=== PATIENT | female | born 1995 | race Caucasian/White ===

== ENCOUNTER → 2021-03-11 00:19 | Outpatient (CLI) | payer OTHER, SELFPAY ==
[2021-03-11 18:14] LABS: SARS-CoV-2 RNA PCR Negative
== END ==
PROVIDERS: Visit Provider Obstetrics & Gynecology
DX: Z01.812 Encounter for preprocedural laboratory examination (principal); Z20.822 Contact with and (suspected) exposure to COVID-19
CPT/HCPCS: C9803; U0003; U0005

== ENCOUNTER 2021-03-15 00:51 | Day surgery (SDC) | payer OTHER, SELFPAY ==
[2021-03-08 14:08] VITALS: BMI 23.8
--- NOTE | 2021-03-08 14:18 | PC.NURSE ---
Report to the Outpatient Waiting Room, entrance under the green pavilion located off [facility], at time 1230 on date 03/15/21. OR Time: 1430. - You and your visitor will be asked a series of questions to screen for COVID 19 for your protection. - A mask is required within the hospital. - Only one visitor is allowed at this time. Patient visitors will be guided where to wait when not with patient. Preoperative COVID Testing Requirements: No COVID Test needed if: (proof is required; if not received patient will have Rapid Test prior to entry) - Patient has received COVID Vaccine at least 14 days prior to procedure date or - Patient has positive COVID test result within last 90 days of surgery date. COVID Test needed if above criteria is not met If not COVID vaccinated a COVID test must be conducted within 72 hours of surgery and patient is asked to isolate self from time of testing until procedure. You will go to the [email or web address] for your COVID testing. The [email or web address] site is located at the corner of [address] [facility]. COVID TEST 03/11 AT 0835 You will only be called if COVID results are positive and your surgeon may reschedule your elective surgery date. Patients may have clear liquids (water, carbonated beverages, clear teas, apple juice) until 3 hours prior to surgery with a maximum of 20 ounces. - No food from midnight until time of surgery - Infants may have breast milk until 4 hours before surgery, infant formula 6 hours prior to surgery. - Children will be allowed to drink immediately following surgery. If applicable, please bring a bottle or sippy cup to assist with drinking. Juice, water, soda, and popsicles are readily available. For infants on formula, please bring formula the day of surgery. Pacifiers are allowed. Take the following medications with a SIP of water the morning of surgery: N/A Medications to discontinue per physician: N/A Date to take last dose: N/A Please no make-up, nail irish, hairspray, perfume, deodorant, or body powder the day of surgery. No jewelry (including any body piercings) or valuables the day of surgery, leave them at home. Please take a shower or bath the night before, or the morning of, surgery with an antibacterial soap. Wear comfortable, loose fitting clothing. Children are encouraged to wear pajamas. - Jewelry must be removed prior to entering the operating room. Rings and piercings that are not removed may be cut off. - The hospital will not accept responsibility for valuables. - Please leave all valuables, including medications, at home the day of surgery. If you are going home after surgery, a licensed class c truck driver must drive you home. - NO public transportation without another adult. - We recommend that an adult stay with you for 24 hours following discharge. - We also recommend that you do not drive, make important decision, drink alcoholic beverages, or take any drugs that were not prescribed by your health care provider for at least 24 hours after your discharge time. For Pediatric surgeries, we recommend two adults accompany the child home (only one inside the building at this time). Follow any additional instructions given to you from your surgeon. Telephone instructions given to ODIN LYNCH and asked if any additional questions and then verbalized understanding. Patient advised to call surgeon office or pre surgery nurse liaison [phone] if any additional questions.
[2021-03-15] MEDS: ACETAMINOPHEN 500 MG TABLET 1000 MG PO (11:09)
[2021-03-15] MEDS: LACTATED RINGERS 1,000 ML 30 ML IV CONT (11:10)
[2021-03-15 11:13] VITALS: BP 104/67; PULSE 67; RESP 20; TEMP 37; O2SAT 100
--- NOTE | 2021-03-15 12:09 | P.PNAN_ITS ---
Anes - Initial Pre Proc Eval Procedure: Operation Date: 03/15/21 12:45 Proposed Procedures p Loop Electrical Excision Procedure - Jayesh Cormier MD Date/Time: 03/15/21 12:09 Surgeon: Jayesh Cormier MD Pre Op Diagnosis: higrade squamous epith lesion Patient Data Age: 26 Gender: F Height: 1.57 m Weight: 58.35 kg Last Vital Signs Temp 37.0 C 03/15/21 11:13 Pulse 67 03/15/21 11:13 Resp 20 03/15/21 11:13 BP 104/67 03/15/21 11:13 Pulse Ox 100 03/15/21 11:13 Allergies Allergy/AdvReac Type Severity Reaction Status Date / Time No Known Allergies Allergy Verified 03/15/21 11:04 Home Medications Medication Instructions Recorded Confirmed Type No Home Medications 03/08/21 03/15/21 History Patient hx anesthesia problems: none Family hx anesthesia problems: none Results Review: All pre-operative results and documents have been reviewed as part of the pre-operative evaluation. [facility] Past Medical History Medical History Anxiety Depression Surgical History Surgical History No history of previous surgery Family History Family History Grandparent Diabetes mellitus Sibling Diabetes mellitus Depression Mother Bipolar disorder Chronic obstructive pulmonary disease Father Heart disease Social History Social History Smoking packs per day: 0.5 Smoking cigarettes per day: 10.0 Years smoked: 8 Smoking pack-years: 4.00 Smoking status: Former smoker Tobacco type: cigarettes Second hand tobacco smoke exposure: No Smoking end date: 04/22/17 Alcohol intake: current Alcohol use details: 2/MONTH Substance use: current Substance use type: marijuana Last use: 03/04/21 Living arrangements: with family Gender identity (if verbalized by the patient): Female Spiritual care concerns: No Agree to blood products: Yes Anes - Eval Final PreProcedure Day of Procedure 03/15/21 12:09 Patient weight: normal Heart: regular rate and rhythm Lungs: clear to auscultation Airway: Mallampati scale class II Neurological: alert and oriented Last oral intake: >/= 8 hours ASA classification: II Emergent: no Anesthetic plan: proceed Anesthesia type and monitoring: general GIVS and standard monitoring Results Review: All pre-operative results and documents have been reviewed as part of the pre-operative evaluation. Informed Consent: The patient's anesthetic plan and its attendant risks and benefits were discussed with the patient/family/POA. Questions were solicited and answers provided to the satisfaction of the patient/family/POA.
--- NOTE | 2021-03-15 12:37 | PM.IMHP ---
H&P: HPI History of Present Illness Date/Time: 03/15/21 12:37 26 y/o with HSIL on pap, not consistent with negative colposcopically directed biopises / ECC. Chief Complaint: Abnormal pap Review of Systems Review of Systems: All systems reviewed & are unremarkable except as noted in HPI and below PMFSH Past Medical History Medical History Anxiety Depression Surgical History Surgical History No history of previous surgery Family History Family History Grandparent Diabetes mellitus Sibling Diabetes mellitus Depression Mother Bipolar disorder Chronic obstructive pulmonary disease Father Heart disease Social History Social History Smoking packs per day: 0.5 Smoking cigarettes per day: 10.0 Years smoked: 8 Smoking pack-years: 4.00 Smoking status: Former smoker Tobacco type: cigarettes Second hand tobacco smoke exposure: No Smoking end date: 04/22/17 Alcohol intake: current Alcohol use details: 2/MONTH Substance use: current Substance use type: marijuana Last use: 03/04/21 Living arrangements: with family Gender identity (if verbalized by the patient): Female Spiritual care concerns: No Agree to blood products: Yes Meds Home Medications and Allergies Home Medications Medication Instructions Recorded Confirmed Type No Home Medications 03/08/21 03/15/21 History Allergies Allergy/AdvReac Type Severity Reaction Status Date / Time No Known Allergies Allergy Verified 03/15/21 11:04 Vital Signs Vital Signs - 24 hr 03/15/21 11:13 Temperature 37.0 C Pulse Rate 67 Respiratory Rate 20 Blood Pressure 104/67 Pulse Oximetry 100 Exam Const: Orientation/consciousness: patient oriented x3 Other: Well-developed, well-nourished female in no acute distress. Neck: Thyroid: thyroid normal Lymphatic: no lymphadenopathy noted (in neck, axilla or inguinal nodes) Resp: Effort & Inspection: normal respiratory effort Auscultation: clear to auscultation bilaterally Cardio: Rate: regular rate Rhythm: regular rhythm Heart sounds: S1 normal heart sound present and S2 normal heart sound present GI: Other: ABD: Soft, nontender, nondistended. No guarding or rebound tenderness. No hepatosplenomegaly. : General: Yes no CVA tenderness Other: External genitalia: normal female hair distribution, without lesion. Urethral meatus: no lesion, non prolapsed. Bladder: no mass, nontender Vagina: well-estrogenized, without lesion or discharge. No cystocele or rectocele. Cervix: no lesion or discharge. Uterus: small, anteverted, freely mobile, nontender Adnexa: no mass or tenderness. Anus/perineum: no lesions, nontender Back/Spine/Pelvis: Back: no CVA tenderness Skin: General skin exam: normal color and no rashes or lesions noted Neuro: General: patient oriented x3 Extrem: Other: Extremities: nontender with no edema Psych: Mental Status: mental status grossly normal Affect: normal affect Assessment and Plan Assessment and plan (1) HSIL (high grade squamous intraepithelial lesion) on Pap smear of cervix: Code(s): R87.613 - High grade squamous intraepithelial lesion on cytologic smear of cervix (HGSIL) Status: Acute Assessment and Plan: A: HSIL on Pap, incongruous with biopsy P: Offered short interval colposcopy vs. excisional procedure. She prefers the latter. Specifically, I have offered her a LEEP. She understands risks of surgery to include risks of anesthesia, risks of pain, infection, bleeding, blood products, thromboembolic phenomena and damage to adjacent structures such as bowel, bladder, ureters, blood vessels and nerves. She understands all these risks and elects to proceed with surgery.
--- NOTE | 2021-03-15 12:39 | WPDHPUPDATE1 ---
History and Physical Update Update Date/Time: 03/15/21 12:39 History and Physical has been reviewed, including an updated exam of the patient. There are NO changes in the patient's condition. Risks, benefits, and alternatives have been discussed and questions answered. Patient agrees to proceed with procedure.
--- NOTE | 2021-03-15 13:05 | SUR.PREOP ---
1255-PT AND FIANCEE AWARE SURGEON DELAYS SELF 45 MINUTES.
--- NOTE | 2021-03-15 14:06 | W.PM.PROC2 ---
Procedure Note - Detailed Date of Procedure 03/15/21 Pre-op Diagnosis HSIL on Pap Post-op Diagnosis same Procedure Performed LEEP conization of cervix Surgeon Jayesh Cormier MD Anesthesia MAC and local (1% lidocaine) Findings Acetowhite epithelium on the posterior lip of the cervix, comprising only one quadrant. Description of Procedure The patient was taken to the operating room where she was prepared and draped in the usual sterile fashion in the dorsal lithotomy position. A sterile speculum was placed into the vagina. Acetic acid was applied to the cervix, with findings noted above. Ten mL of 1% lidocaine was administered in a paracervical block. LEEP conization was then performed, first biopsying the posterior lip of the cervix, then the anterior, then the top of the hat. The roller ball was used to achieve hemostasis. Monsel's solution was applied. Hemostasis was excellent. Sponge, lap, needle and instrument counts were correct. The patient was awakened and taken to the recovery room in stable condition. I was present and scrubbed through the entire procedure. Estimated Blood Loss 5 Drains No Packing No Pathology yes (Cervical biopsies x 3) Complications None Condition stable Disposition PACU
[2021-03-15 14:10] VITALS: BP 115/75; PULSE 73; RESP 18; O2SAT 99
[2021-03-15 14:25] VITALS: BP 109/70; PULSE 71; RESP 18; O2SAT 97
--- NOTE | 2021-03-15 14:35 | SUR.PHASEII ---
PT WAS TEARFUL AND ANXIOUS. PT ASSISTED TO THE RECLINER AND GIVEN JUICE. PT SAID SHE GETS LIKE THAT AFTER PROCEDURES. PT VISITOR CAME TO BEDSIDE. PT HAS SINCE CALMED DOWN. VSS. PT GIVEN TISSUES.
[2021-03-15 14:40] VITALS: BP 110/69; PULSE 62; RESP 16; O2SAT 100
== END 2021-03-15 15:02 | disposition home or self-care (01) ==
PROVIDERS: Visit Provider Obstetrics & Gynecology
PROC: 0UBC7ZZ Excision of Cervix, Via Natural or Artificial Opening (ICD-10-PCS; CPT 57522; principal; 2021-03-15 12:45)
DX: D06.9 Carcinoma in situ of cervix, unspecified (principal); N72 Inflammatory disease of cervix uteri; F41.8 Other specified anxiety disorders; Z87.891 Personal history of nicotine dependence; F12.90 Cannabis use, unspecified, uncomplicated
CPT/HCPCS: 57522; 88305; A9270; C9803; J1885; J2250; J2270; J2405; J2704; J7120; U0003; U0005

== ENCOUNTER → 2021-05-16 16:43 | Outpatient (CLI) | payer OTHER, MEDICAID, SELFPAY ==
--- NOTE | ~2021-05-16 | XR_ITS ---
XR cervical spine min 6V DATE: 05/16/2021 17:21 INDICATION: Neck pain TECHNIQUE: AP, open-mouth, lateral, swimmer's and bilateral oblique views COMPARISON: None FINDINGS: There is mild reversal of cervical curvature. C1 and C2 are normally aligned and the odontoid process is intact. No fracture or dislocation or locked facet or prevertebral soft tissue swelling. Cervical interspaces are well preserved. There is no bony encroachment upon the neural foramina. IMPRESSION: Mild reversal cervical curvature; otherwise negative Reviewed, dictated and finalized at location A. [employer]
== END ==
PROVIDERS: PCP Nurse Practitioner; Visit Provider Nurse Practitioner
DX: M54.2 Cervicalgia (principal); M43.8X2 Other specified deforming dorsopathies, cervical region
CPT/HCPCS: 72052

== ENCOUNTER 2022-04-04 10:31 | Outpatient (RCR) | payer OTHER, SELFPAY ==
--- NOTE | ~2022-04-04 | US_ITS ---
EXAMINATION: US OB limited DATE: 04/04/2022 11:44 INDICATION: Amniotic fluid index. Term . TECHNIQUE: Real-time ultrasound of the pelvis was performed. COMPARISON: None. FINDINGS: There is a single fetus in vertex presentation. The placenta is anterior. heart rate is 141 be ats per minute (bpm). The amniotic fluid index is 8.0 cm, which is normal. IMPRESSION: 1. Single living fetus in vertex presentation. 2. Normal amniotic fluid index. Reviewed, dictated and finalized at location A. LOADER
[2022-04-04 11:57] VITALS: BP 103/76; PULSE 104
== END 2022-07-03 23:59 | disposition home or self-care (01) ==
LOC: ANHOBOP 10:31
PROVIDERS: PCP Family Medicine; Visit Provider Obstetrics & Gynecology
DX: O26.893 Other specified pregnancy related conditions, third trimester (principal); Z3A.39 39 weeks gestation of pregnancy
CPT/HCPCS: 59025; 76815

== ENCOUNTER 2023-06-16 15:32 | Emergency (ER) | payer OTHER, SELFPAY ==
[2023-06-16 16:02] VITALS: BP 135/72; PULSE 91; RESP 18; TEMP 36.4; O2SAT 100
== END 2023-06-16 17:34 | disposition left against medical advice (07) ==
LOC: ANHED 17:24
PROVIDERS: Emergency Provider Emergency Medicine; PCP Family Medicine
DX: M54.50 Low back pain, unspecified (principal)
CPT/HCPCS: 99199

== ENCOUNTER 2024-02-13 12:11 | Observation (INO) | payer OTHER, SELFPAY ==
--- NOTE | 2024-02-13 | ECHO_ITS ---
Patient Info Name: Joann Conti Age: 28 years : 1995 Gender: Female Ht: 63 in Wt: 132 lbs BSA: 1.64 m2 HR: 85 bpm BP: 130 / 84 mmHg Heart Rhythm: Sinus Rhythm Technical Quality: Fair Exam Date: 02/13/2024 4:38 PM Exam Location: Echo Lab Patient Status: Inpatient Admit Date: 02/13/2024 Staff Ordering Physician: Magi Oro APRN [employer] Vegetable: Parvez Tellez RDCS Attending Provider: Samir Ayers MD Referring Physician: Shorty LOPEZ; Exam Type: CA echo doppler w bubble study Study Info Indications - ?MURRAY Complete two-dimensional, color flow and Doppler transthoracic echocardiogram is performed with agitated saline. Contrast/Agitated Saline Contrast/Ag. Saline: Agitated Saline Amount: 14.00 ml Existing IV Access: Yes IV Access Condition: patent with no signs of infiltration Summary 1. Left ventricular chamber dimension is normal. 2. Left ventricular systolic function is normal, estimated at 65-70%. 3. Right ventricular systolic function is normal. 4. No valvular disease. Left Ventricle Left ventricular chamber dimension is normal. Left ventricular systolic function is normal, estimated at 65-70%. There is no increased left ventricular wall thickness. The left ventricular diastolic function is normal. Right Ventricle Right ventricular chamber dimension is normal. Right ventricular systolic function is normal. Left Atria Left atrial chamber dimension is normal. Right Atria Right atrial chamber dimension is normal. Atrial Septum Intact interatrial septum visualized by color flow and agitated saline imaging. Aortic Valve The aortic valve is trileaflet. There is no aortic valve stenosis. There is no aortic valve regurgitation. Pulmonic Valve The pulmonic valve is normal. There is no pulmonic regurgitation. Mitral Valve There is no mitral valve regurgitation. Tricuspid Valve There is trace tricuspid valve regurgitation. Pericardium/Pleural There is no pericardial effusion. Inferior Vena Cava Inferior vena cava is not well visualized. Aorta The aortic root size at the sinus of Valsalva is normal. Left Ventricular Outflow Tract Name Value Normal LVOT 2D LVOT Diameter 1.9 cm LVOT Doppler LVOT Peak Gradient 5 mmHg LVOT Mean Gradient 3 mmHg LVOT VTI 20 cm LVOT VTI/AV VTI Ratio 0.7 LVOT Stroke Volume 58 ml LVOT CO 5.1 l/min LVOT CI 3.1 l/min/m2 Pulmonic Valve Name Value Normal PV Doppler PV Peak Gradient 7 mmHg Mitral Valve Name Value Normal MV Doppler MV Decel Jones 525 cm/s2 MV PHT 56 ms MV Area (PHT) 3.9 cm2 4.0-5.0 MV Diastolic Function MV E Peak Velocity 102 cm/s MV A Peak Velocity 61 cm/s MV E/A 1.7 MV Decel Time 194 ms Tricuspid Valve Name Value Normal TV Regurgitation Doppler TR Peak Velocity 231 cm/s TR Peak Gradient 21 mmHg Aorta Name Value Normal Ascending Aorta Ao Root Diameter (MM) 2.0 cm Ao Root Diam Index (MM) 1.2 cm/m2 Aortic Valve Name Value Normal AV Doppler AV Peak Velocity 167 cm/s AV Peak Gradient 11 mmHg AV Mean Gradient 5 mmHg AV VTI 28 cm AV Area (Cont Eq VTI) 2.1 cm2 >=3.0 AV Area (Cont Eq Bryan) 2.0 cm2 AV Regurgitation 2D LVOT Area 2.8 cm2 Ventricles Name Value Normal LV Dimensions 2D/MM IVS Diastolic Thickness (2D) 0.5 cm 0.6-1.0 IVS Diastole Thickness (MM) 0.9 cm 0.6-0.9 LVID Diastole (2D) 4.7 cm 3.8-5.2 LVID Diastole (MM) 4.3 cm 3.8-5.2 LVIW Diastolic Thickness (2D) 0.5 cm 0.6-0.9 LVIW Diastolic Thickness (MM) 0.9 cm 0.6-0.9 LVID Systole (2D) 2.3 cm 2.2-3.5 LVID Systole (MM) 2.8 cm 2.2-3.5 LVOT Diameter 1.9 cm LV Mass (2D Cubed) 68.73 g 67.00-162.00 LV Mass Index (2D Cubed) 42 g/m2 43-95 Relative Wall Thickness (2D) 0.21 LV Mass (MM Cubed) 124.07 g 67.00-162.00 LV Mass Index (MM Cubed) 76 g/m2 43-95 Relative Wall Thickness (MM) 0.42 LV Fractional Shortening/Ejection Fraction 2D/MM LV Fractional Shortening (2D) 52 % 27-45 LV Fractional Shortening (MM) 35 % 27-45 LV EF (MM Teicholz) 64 % 54-74 LV EF (2D Teicholz) 83 % 54-74 LV Diastolic Volume (4C MOD) 62 ml LV EF (4C MOD) 73 % LV Diastolic Volume (2C MOD) 53 ml LV EF (2C MOD) 65 % LV Diastolic Volume (BP MOD) 59 ml 46-106 LV Diastolic Volume Index (BP MOD) 36 ml/m2 29-61 LV Systolic Volume (BP MOD) 18 ml 14-42 LV Systolic Volume Index (BP MOD) 11 ml/m2 8-24 LV EF (BP MOD) 69 % 54-74 LV Diastolic Length (4C) 7.6 cm LV Systolic Length (4C) 6.1 cm LV Stroke Volume (4C MOD) 45 ml Atria Name Value Normal LA Dimensions LA Dimension (MM) 2.9 cm 2.7-3.8 LA Volume (4C A-L) 25 ml LA Volume (BP A-L) 29 ml RA Dimensions RA Area (4C) 10.5 cm2 <=18.0 Report Signatures
--- NOTE | ~2024-02-13 | CT_ITS ---
CT brain wo con Ordering provider: Edwin Hatch MD History: 28 years Female with . headache left upper extremity numbness . Comparison: None. Technique: CT of the head without contrast. Radiation reduction technique utilized.The dose-length product was 605.33 mGy-cm. FINDINGS: BRAIN PARENCHYMA AND CSF SPACES: No midline shift, mass effect or hemorrhage. The brain parenchyma a nd CSF spaces are otherwise normal. VISUALIZED PARANASAL SINUSES: Well aerated. MASTOIDS: Well aerated. BONES: The bones appear intact. SOFT TISSUES: Visualized nasopharynx is normal. Superficial soft tissues are normal. IMPRESSION: No acute intracranial findings. Reviewed, dictated and finalized at location A.
--- NOTE | ~2024-02-13 | XR_ITS ---
EXAMINATION: XR chest 1V DATE: 02/13/2024 12:59 INDICATION: Headache and numbness. TECHNIQUE: A single frontal view of the chest was obtained. COMPARISON: Chest 2 views 03/16/2009 FINDINGS: There is no pneumonia, pleural effusion, or pneumothorax. The heart is normal. IMPRESSION: 1. No acute cardiopulmonary disease. Reviewed, dictated and finalized at location A.
--- NOTE | ~2024-02-13 | MR_ITS ---
EXAMINATION: MR brain/brain stem wo con DATE: 02/14/2024 09:19 INDICATION: Transient ischemic attack. TECHNIQUE: Magnetic resonance imaging (MRI) of the brain and brainstem was performed without intraven ous contrast. COMPARISON: Head CT 02/13/2024 FINDINGS: There is no intracranial hemorrhage, acute infarction, or abnormal intracranial mass lesion . The ventricles are normal in size. The paranasal sinuses are clear. The orbits are normal. The mast oid air cells are normal. IMPRESSION: 1. Normal brain. Reviewed, dictated and finalized at location A. IMPRESSION: 1. Normal brain.
--- NOTE | ~2024-02-13 | CT_ITS ---
EXAMINATION: CTA brain carotid DATE: 02/13/2024 13:58 INDICATION: Transient ischemic attack. TECHNIQUE: Computed tomographic angiography (CTA) of the head was performed with 100 mL Omnipaque-350 intravenous contrast. CTA of the neck was performed with intravenous contrast. Automated exposure co ntrol and iterative reconstruction technique were employed. The dose-length product was 969.03 mGy-cm . Maximum intensity projection and volume rendered 3D-reconstructions were created by the [employer] t on a separate workstation. COMPARISON: Head CT 02/13/2024 FINDINGS: HEAD CTA: There is no intracranial hemorrhage, acute infarction, or abnormal intracranial mass lesion . The ventricles are normal in size. There is mild mucosal thickening in the paranasal sinuses. The m astoid air cells are normal. The orbits are normal. The vertebral arteries are codominant. There is n o significant stenosis of basilar artery or the posterior cerebral arteries. The posterior communicat or arteries are normal. There is no significant stenosis of the intracranial internal carotid arterie s or anterior or middle cerebral arteries. Anterior communicating artery is normal. There is no aneur ysm. NECK CTA: There are no pathologically enlarged lymph nodes. There is no significant stenosis of the v ertebral arteries. There is no visible plaque in the proximal internal carotid arteries. There is 0% stenosis of the proximal right internal carotid artery relative to normal distal artery lumen diamete r (NASCET criteria). There is 0% stenosis of the proximal left internal carotid artery relative to no rmal distal artery lumen diameter. There is kyphosis of cervical spine. IMPRESSION: 1. Normal brain. No aneurysm or significant intracranial arterial stenosis. 2. 0% stenosis of the proximal internal carotid arteries relative to normal distal artery lumen diame ters (NASCET criteria). Reviewed, dictated and finalized at location A. IMPRESSION: 1. Normal brain. No aneurysm or significant intracranial arterial stenosis. 2. 0% stenosis of the proximal internal carotid arteries relative to normal dis russ artery lumen diameters (NASCET criteria).
--- NOTE | 2024-02-13 12:16 | ED.GENADULT ---
HPI - General Adult General Chief complaint: Unspecified Stated complaint: AMES, unable to talk, pain in R arm Time Seen by Provider: 02/13/24 12:13 Source: patient and family Mode of arrival: ambulatory Limitations: no limitations History of Present Illness HPI narrative: 28 years old white female came by private car with her complaining of sudden onset of slurred speech, was not able to get words out while talking on the phone, right upper extremity numbness, right face numbness, lips numbness and subsequently started getting anxious and panicky, followed by massive generalize dull aching headache. Patient felt like she is going to pass out. The above symptoms resolved after 10 minutes but still having headache. Patient is telling me that she had similar headaches 2 to 3 times a year for the last few years and usually gets better on ibuprofen never been associated with the above symptoms. Patient reports tremendous amount of stress lately, she does not take medicine at home she does not smoke or drink or use drugs. Related Data Home Medications Medication Instructions Recorded Confirmed Adult One Daily Multivitamin 1 tablet PO DAILY 02/13/24 02/13/24 Allergies Allergy/AdvReac Type Severity Reaction Status Date / Time succinylcholine Allergy Severe Anaphylaxis Verified 02/13/24 18:10 [From Anectine] Review of Systems Review of Systems: All systems reviewed & are unremarkable except as noted in HPI and below PMFSH Past Medical History Medical History Anxiety Depression History of chlamydia Migraine equivalent syndrome Migraine syndrome Surgical History Surgical History History of loop electrical excision procedure (LEEP) 02/2021, [place] History of tonsillectomy Tonsils/Adnoids Family History Family History Grandparent Diabetes mellitus Heart disease Sibling Diabetes mellitus Depression Mother Bipolar disorder Family history of lung cancer Chronic obstructive pulmonary disease Father No problems noted. Daughter Seizure disorder Social History Social History Social History: Lives at home alone with her 2 children, she is not , works as a social work job titles. Smoking packs per day: 0.5 Smoking cigarettes per day: 10.0 Years smoked: 8 Smoking pack-years: 4.00 Smoking status: Former smoker Second hand tobacco smoke exposure: No Alcohol intake: current Drinks per week: 1 Alcohol use details: 2/MONTH Substance use: former Substance use type: does not use Last use: 03/04/21 Do You Feel Safe in your Home?: Yes Lack of Transportation: No Lack of Food: Never True Current Housing: I Have Housing Concerned About Future Housing: No Difficulty Paying Gas/Electric Bills: No Difficulty Paying for Meds: No Currently Unemployed: No Education: Bachelor's Degree Difficulty w/ Childcare or Family Care: No Living arrangements: with family Occupation/Education: student Gender identity (if verbalized by the patient): Female Spiritual care concerns: No Agree to blood products: Yes Exam Narrative: General appearance: Well-developed, well-nourished Restless, looks in pain Skin: Normal color Head: Normocephalic, nontraumatic Eyes: Clear conjunctiva ENT: Oropharynx normal, ears normal, nose normal Neck: Supple, nontender Chest and respiratory: Airway patent, no respiratory distress, no accessory muscle use Heart: Regular rate/rhythm Abdomen: Soft, nontender, no organomegaly, quiet bowel sounds Vascular: Normal peripheral pulses, normal capillary refill. Musculoskeletal: Normal range of motion, nontender back Neurologic: Alert and oriented ?3, [employer] is normal as tested, no gross motor deficit Course Consultations Consultation #1: dr reis Admit to hospitalist Date: 02/13/24 Vital Signs Vital signs: Vital Signs Temperature 36.4 C 02/13/24 12:17 Pulse Rate 106 H 02/13/24 12:17 Respiratory Rate 16 02/13/24 12:17 Blood Pressure 130/84 02/13/24 12:17 Pulse Oximetry 100 02/13/24 12:17 Oxygen Delivery Room Air 02/13/24 12:17 Temperature 37.2 C 02/13/24 20:13 Pulse Rate 101 H 02/13/24 20:13 Respiratory Rate 16 02/13/24 20:13 Blood Pressure 100/44 L 02/13/24 20:13 Pulse Oximetry 98 02/13/24 20:13 Oxygen Delivery Room Air 02/13/24 20:00 Medical Decision Making MDM Narrative Medical decision making narrative: patient came to the ED by private car with sudden onset of slurred speech, numbness of the right upper extremity on the right side of the face resolved in 10 minutes subsequently started having generalized dull aching headache mainly at the top of her head bilaterally. Patient under tremendous amount of stress. Vital signs showing heart rate of 106 Physical examination showing restless, anxious, in pain patient with tears. Differential diagnosis include anxiety like symptoms, complex migraine headache, TIA which is less likely. Blood workup today showed potassium 3.3 otherwise insignificant abnormalities Urinalysis and urine drug screen showed no acute abnormalities Chest x-ray showed no acute abnormalities CT head without contrast showed no acute abnormality CTA head and neck showed no acute abnormalities. Admit to hospitalist, discussed with Dr. reis. Differential Diagnosis Differential Diagnosis: As above Vital Signs Vital Signs: Vital Signs Temperature 36.4 C 02/13/24 12:17 Pulse Rate 106 H 02/13/24 12:17 Respiratory Rate 16 02/13/24 12:17 Blood Pressure 130/84 02/13/24 12:17 Pulse Oximetry 100 02/13/24 12:17 Oxygen Delivery Room Air 02/13/24 12:17 Temperature 37.2 C 02/13/24 20:13 Pulse Rate 101 H 02/13/24 20:13 Respiratory Rate 16 02/13/24 20:13 Blood Pressure 100/44 L 02/13/24 20:13 Pulse Oximetry 98 02/13/24 20:13 Oxygen Delivery Room Air 02/13/24 20:00 Lab Data 02/13/24 13:18 02/13/24 13:19 Labs: Lab Results 02/13/24 02/13/24 02/13/24 Range/Units 12:41 12:42 13:05 WBC (4.5-10.0) K/mm3 RBC (4.2-5.4) M/mm3 Hgb (12.0-15.0) g/dL Hct (37.0-47.0) % MCV (80-100) fl MCH (26-34) pg MCHC (32-36) g/dl RDW (11.5-14.5) % Plt Count (150-375) k/mm3 MPV (7.4-10.4) fl Immature Gran % (Auto) (0-0.5) % Neut % (Auto) (45.5-73.1) % Lymph % (Auto) (18.3-44.2) % [place] % (Auto) (2.6-8.5) % Eos % (Auto) (0-4.4) % Baso % (Auto) (0.2-1.2) % Lymph # (Auto) (0.9-3.2) K/mm3 [place] # (Auto) (0.1-0.6) K/mm3 Eos # (Auto) (0-0.3) K/mm3 Baso # (Auto) (0.0-0.1) K/mm3 Abs Immat Gran (auto) (0.00-0.031) K/mm3 Absolute Neuts (auto) (1.3-6.7) K/mm3 Absolute Nucleated RBC (0.0-0.012) K/mm3 Nucleated RBC % (0.0-0.2) % PT (11.1-14.7) Seconds INR APTT (22.3-36.8) Seconds Sodium (137-145) mmol/L Potassium (3.4-5.0) mmol/L Chloride (98-107) mmol/L Carbon Dioxide (22-30) mmol/L Anion Gap (4-12) mmol/L BUN (7-17) mg/dL Creatinine (0.7-1.0) mg/dL Estim Creat Clear Calc ml/min Estimated GFR (59 - ) Glucose (65-110) mg/dL POC Capillary Glucose 98 (65-105) mg/dl Calcium (8.4-10.2) mg/dL Magnesium (1.6-2.3) mg/dL Total Bilirubin (0.2-1.3) mg/dL AST (14-36) U/L ALT (6-35) U/L Alkaline Phosphatase (38-126) U/L Total Protein (6.3-8.2) g/dL Albumin (3.5-5.1) g/dL TSH (0.465-4.680) uIU/mL POC Urine HCG, Qual Negative (Negative) Urine Opiates Screen Negative (Negative) Urine Methadone Screen Negative (Negative) Ur Barbiturates Screen Negative (Negative) Ur Phencyclidine Scrn Negative (Negative) Ur Amphetamine Screen Negative (Negative) U Benzodiazepines Scrn Negative (Negative) Urine Cocaine Screen Negative (Negative) U Cannabinoids Screen Negative (Negative) 02/13/24 02/13/24 02/13/24 Range/Units 13:18 13:19 13:24 WBC 9.5 (4.5-10.0) K/mm3 RBC 5.28 (4.2-5.4) M/mm3 Hgb 15.0 D (12.0-15.0) g/dL Hct 44.6 (37.0-47.0) % MCV 84.5 (80-100) fl MCH 28.4 (26-34) pg MCHC 33.6 (32-36) g/dl RDW 12.9 (11.5-14.5) % Plt Count 225 (150-375) k/mm3 MPV 9.2 (7.4-10.4) fl Immature Gran % (Auto) 0.3 (0-0.5) % Neut % (Auto) 76.3 H (45.5-73.1) % Lymph % (Auto) 16.9 L (18.3-44.2) % [place] % (Auto) 5.4 (2.6-8.5) % Eos % (Auto) 0.5 (0-4.4) % Baso % (Auto) 0.6 (0.2-1.2) % Lymph # (Auto) 1.61 (0.9-3.2) K/mm3 [place] # (Auto) 0.5 (0.1-0.6) K/mm3 Eos # (Auto) 0.1 (0-0.3) K/mm3 Baso # (Auto) 0.1 (0.0-0.1) K/mm3 Abs Immat Gran (auto) 0.03 (0.00-0.031) K/mm3 Absolute Neuts (auto) 7.2 H (1.3-6.7) K/mm3 Absolute Nucleated RBC 0.000 (0.0-0.012) K/mm3 Nucleated RBC % 0.0 (0.0-0.2) % PT 13.1 (11.1-14.7) Seconds INR 0.9 APTT 27.9 (22.3-36.8) Seconds Sodium 139 (137-145) mmol/L Potassium 3.3 L (3.4-5.0) mmol/L Chloride 106 (98-107) mmol/L Carbon Dioxide 21 L (22-30) mmol/L Anion Gap 12 (4-12) mmol/L BUN 9 (7-17) mg/dL Creatinine 0.50 L (0.7-1.0) mg/dL Estim Creat Clear Calc 116 ml/min Estimated GFR > 60 (59 - ) Glucose 103 (65-110) mg/dL POC Capillary Glucose (65-105) mg/dl Calcium 9.2 (8.4-10.2) mg/dL Magnesium 2.0 (1.6-2.3) mg/dL Total Bilirubin 0.7 (0.2-1.3) mg/dL AST 23 (14-36) U/L ALT 12 (6-35) U/L Alkaline Phosphatase 56 (38-126) U/L Total Protein 8.0 (6.3-8.2) g/dL Albumin 4.7 (3.5-5.1) g/dL TSH 0.920 (0.465-4.680) uIU/mL POC Urine HCG, Qual (Negative) Urine Opiates Screen (Negative) Urine Methadone Screen (Negative) Ur Barbiturates Screen (Negative) Ur Phencyclidine Scrn (Negative) Ur Amphetamine Screen (Negative) U Benzodiazepines Scrn (Negative) Urine Cocaine Screen (Negative) U Cannabinoids Screen (Negative) Imaging Data Radiologist's impression: Impressions Head CT 02/13/24 12:59 IMPRESSION: No acute intracranial findings. Chest X-Ray 02/13/24 13:00 IMPRESSION: 1. No acute cardiopulmonary disease. Head/Neck CTA 02/13/24 14:03 IMPRESSION: 1. Normal brain. No aneurysm or significant intracranial arterial stenosis. 2. 0% stenosis of the proximal internal carotid arteries relative to normal distal artery lumen diameters (NASCET criteria). Critical Care Time Critical Care Time Critical Care Time: No Discharge Plan Discharge Clinical Impression: Brain TIA, Headache, Acute hypokalemia Patient Disposition: Still a Patient Condition: Improved
[2024-02-13 12:17] VITALS: BP 130/84; PULSE 106; RESP 16; TEMP 36.4; O2SAT 100
--- NOTE | 2024-02-13 12:36 | ECG_ITS ---
Test Date: 2024-02-13 13:03:37 Measurements Intervals [place] Rate: 81 P: 12 MO: 120 QRS: 67 QRSD: 113 T: 37 QT: 367 QTc: 426 Interpretive Statements SINUS RHYTHM WITH SINUS ARRHYTHMIA RIGHT BUNDLE BRANCH BLOCK [120+ ms QRS DURATION, UPRIGHT V1, 40+ ms S IN I/aVL/V4/V5/V6] No previous ECG available for comparison Electronically Signed On 02-13-2024 15:30:51 CDT by Tomasa Whitaker M.D.
[2024-02-13 12:48] LABS: BEDSIDEPREGUCG Negative (Negative)
[2024-02-13 13:02] VITALS: PULSE 82
[2024-02-13 13:06] LABS: Amphetamine Screen Urine Negative (Negative); Barbiturate Screen Urine Negative (Negative); Benzodiazepines Screen Urine Negative (Negative); Cannabinoid Screen Urine Negative (Negative); Cocaine Screen Urine Negative (Negative); Methadone Screen Urine Negative (Negative); Opiate Screen Urine Negative (Negative); Phencyclidine Screen Urine Negative (Negative)
[2024-02-13 13:08] LABS: Glucose Point of Care 98 mg/dl (65-105)
[2024-02-13] MEDS: LORazepam INJ (*CRX) 2 MG/ML VIAL 1 MG IV PUSH (13:12)
[2024-02-13] MEDS: SODIUM CHLORIDE 0.9% IV 1,000 ML 999 ML IV CONT (13:12)
[2024-02-13] MEDS: KETOROLAC 30 MG/ML VIAL (*BKC) IV PUSH (13:14)
[2024-02-13] MEDS: diphenhydrAMINE HCl INJ 50 MG/ML VIAL IV PUSH (13:15)
[2024-02-13] MEDS: METOCLOPRAMIDE HCL INJ 10 MG/2 ML VIAL IV PUSH (13:16)
[2024-02-13 13:27] LABS: Basophils Absolute Auto 0.1 K/mm3 (0.0-0.1); Basophils Percent Auto 0.6 % (0.2-1.2); Eosinophils Absolute Auto 0.1 K/mm3 (0-0.3); Eosinophils Percent Auto 0.5 % (0-4.4); Hematocrit 44.6 % (37.0-47.0); Immature Granulocyte Absolute 0.03 K/mm3 (0.00-0.031); Immature Granulocyte Percent A 0.3 % (0-0.5); Lymphocytes Absolute Auto 1.61 K/mm3 (0.9-3.2); Lymphocytes Percent Auto 16.9 % (18.3-44.2); Mean Corpuscular HGB Conc 33.6 g/dl (32-36); Mean Corpuscular Hemoglobin 28.4 pg (26-34); Mean Corpuscular Volume 84.5 fl (80-100); Mean Platelet Volume 9.2 fl (7.4-10.4); Monocytes Absolute Auto 0.5 K/mm3 (0.1-0.6); Monocytes Percent Auto 5.4 % (2.6-8.5); Neutrophils Absolute Auto 7.2 K/mm3 (1.3-6.7); Neutrophils Percent Auto 76.3 % (45.5-73.1); Platelet Count Result 225 k/mm3 (150-375); Red Blood Count 5.28 M/mm3 (4.2-5.4); Red Cell Distribution Width 12.9 % (11.5-14.5); White Blood Count 9.5 K/mm3 (4.5-10.0)
[2024-02-13 13:37] LABS: Alanine Aminotransferase 12 U/L (6-35); Albumin Level 4.7 g/dL (3.5-5.1); Alkaline Phosphatase 56 U/L (38-126); Anion Gap 12 mmol/L (4-12); Aspartate Amino Transferase 23 U/L (14-36); Bilirubin,Total 0.7 mg/dL (0.2-1.3); Blood Urea Nitrogen 9 mg/dL (7-17); Calcium 9.2 mg/dL (8.4-10.2); Carbon Dioxide 21 mmol/L (22-30); Chloride 106 mmol/L (98-107); Estimated CRCL calculation 116 ml/min; Estimated Glomerular Filt Rate > 60; Glucose 103 mg/dL (65-110); Potassium 3.3 mmol/L (3.4-5.0); Sodium 139 mmol/L (137-145)
[2024-02-13 13:42] LABS: INR 0.9; Prothrombin Time 13.1 Seconds (11.1-14.7)
[2024-02-13 13:43] LABS: Partial Thromboplastin Time 27.9 Seconds (22.3-36.8)
[2024-02-13 14:23] VITALS: PULSE 85; RESP 18; TEMP 36.8; O2SAT 99
--- NOTE | 2024-02-13 16:13 | P.HP_ITS ---
H&P: HPI History of Present Illness Date/Time: 02/13/24 16:13 Chief Complaint: slurred speech facial numbness headache Narrative: This is a 28-year-old female with a significant past medical history of anxiety , depression, former smoker who presented to the hospital with complaints slurred speech, numbness in her lips and the right side of her face, and a headache that she rates 10/10. Patient reports the following history of presenting illness. She states that she has been under a lot of stress lately and today developed numbness/tingling in her lips and her right side of the face felt numb with some associated slurred speech that lasted for 10 minutes and then went away. She had a really bad headache during that time that was unrelieved with the other symptoms. She denies any history of migraines and she states that when she gets headaches they are usually relieved with Ibuprofen. She also reported nausea and vomiting associated with her headache. She received 1L of NS, Toradol, ativan, reglan, and benadryl while in the ER with complete resolution of her symptoms.She denies any recent sick contacts, fever, chills, nausea, vomiting, diarrhea, abdominal pain, chest pain, shortness of breath, lightheadedness, dizziness, or visual changes. She displays no neuro deficits at this time. Workup in the hospital included a head CT which was negative for any acute intracranial findings. Chest x-ray was negative for any acute cardiopulmonary disease. Head and neck CTA showed a normal brain, no aneurysm or significant intracranial arterial stenosis. EKG shown sinus rhythm with sinus arrhythmia with a right bundle branch block, rate 81, QTC 426. Initial labs showed a potassium of 3.3, bicarb 21, otherwise unremarkable. test was negative as well as urine drug screen was negative. Neurology was consulted while in the ED for TIA verus complex migraine. She is being admitted in this setting for further work up. Review of Systems Review of Systems: All systems reviewed & are unremarkable except as noted in HPI and below Constitutional: Constitutional: Reports as per HPI and Reports no additional constitutional complaints Eyes: Eyes: Reports as per HPI and Reports no additional eye complaints ENT: Reports system reviewed and no additional complaints, except as documented and Reports as per HPI Cardiovascular: Cardiovascular: Reports as per HPI and Reports no additional cardiovascular complaints Respiratory: Respiratory: Reports as per HPI and Reports no additional respiratory complaints Gastrointestinal: Gastrointestinal: Reports as per HPI and Reports no additional gastrointestinal complaints Genitourinary: Genitourinary: Reports no additional female genitourinary complaints and Reports as per HPI Musculoskeletal: Musculoskeletal: Reports no additional musculoskeletal complaints and Reports as per HPI Integumentary/Breasts: Skin/Breast: Reports system reviewed and no additional complaints, except as docu and Reports as per HPI Neurologic: Reports system reviewed and no additional complaints, except as documented and Reports as per HPI Psychiatric: Psychiatric: Reports no additional psychiatric complaints and Reports as per HPI [facility] Past Medical History Medical History Anxiety Depression History of chlamydia Migraine equivalent syndrome Migraine syndrome Surgical History Surgical History History of loop electrical excision procedure (LEEP) 02/2021, [place] History of tonsillectomy Tonsils/Adnoids Family History Family History Grandparent Diabetes mellitus Heart disease Sibling Diabetes mellitus Depression Mother Bipolar disorder Family history of lung cancer Chronic obstructive pulmonary disease Father No problems noted. Daughter Seizure disorder Social History Social History Social History: Lives at home alone with her 2 children, she is not , works as a director of social services. Smoking packs per day: 0.5 Smoking cigarettes per day: 10.0 Years smoked: 8 Smoking pack-years: 4.00 Smoking status: Former smoker Second hand tobacco smoke exposure: No Alcohol intake: current Drinks per week: 1 Alcohol use details: 2/MONTH Substance use: former Substance use type: does not use Last use: 03/04/21 Do You Feel Safe in your Home?: Yes Lack of Transportation: No Lack of Food: Never True Current Housing: I Have Housing Concerned About Future Housing: No Difficulty Paying Gas/Electric Bills: No Difficulty Paying for Meds: No Currently Unemployed: No Education: Bachelor's Degree Difficulty w/ Childcare or Family Care: No Living arrangements: with family Occupation/Education: student Gender identity (if verbalized by the patient): Female Spiritual care concerns: No Agree to blood products: Yes Meds Home Medications and Allergies Home Medications Medication Instructions Recorded Confirmed Type Adult One Daily Multivitamin 1 tablet PO DAILY 02/13/24 02/13/24 History Allergies Allergy/AdvReac Type Severity Reaction Status Date / Time succinylcholine Allergy Severe Anaphylaxis Verified 02/13/24 18:10 [From Anectine] Vital Signs Vital Signs - 24 hr 02/13/24 12:17 02/13/24 13:02 02/13/24 14:23 Temperature 97.6 F 98.2 F Pulse Rate 106 H 82 85 Respiratory Rate 16 18 Blood Pressure 130/84 Pulse Oximetry 100 99 Oxygen Delivery Room Air Exam Narrative: General: In no acute distress, well nourished Head: atraumatic, no encephalopathy Eyes: EOMI, PERRLA, sclera clear ENT: moist mucous membranes, nasal passages clear Neck: supple, no JVD, no adenopathy, trachea midline Cardiac: Normal S1 and S2. RRR, No murmur, gallops or friction rubs, peripheral pulses intact. Respiratory: Lungs clear to auscultation, no adventitious lung sounds, currently on room air Gastrointestinal: soft, non-distended, non-tender, normoactive bowel sounds. : voiding without difficulty. Extremities: moves all extremities well, no edema, good ROM, strength 5/5 Skin: clean, dry, intact. No wounds or lesions. Neuro: Alert and oriented x4, cranial nerves intact, no neuro deficits. Psych: normal mood, normal affect, interactive H&P: Results Labs Labs: Short CBC 02/13/24 Range/Units 13:18 WBC 9.5 (4.5-10.0) K/mm3 Hgb 15.0 D (12.0-15.0) g/dL Hct 44.6 (37.0-47.0) % Plt Count 225 (150-375) k/mm3 BMP 02/13/24 13:19 Sodium 139 Potassium 3.3 L Chloride 106 Carbon Dioxide 21 L BUN 9 Creatinine 0.50 L Glucose 103 Calcium 9.2 Liver Function 02/13/24 Range/Units 13:19 Total Bilirubin 0.7 (0.2-1.3) mg/dL AST 23 (14-36) U/L ALT 12 (6-35) U/L Alkaline Phosphatase 56 (38-126) U/L Albumin 4.7 (3.5-5.1) g/dL Imaging Chest x-ray: Radiologist's impression: EXAMINATION: XR chest 1V DATE: 02/13/2024 12:59 INDICATION: Headache and numbness. TECHNIQUE: A single frontal view of the chest was obtained. COMPARISON: Chest 2 views 03/16/2009 FINDINGS: There is no pneumonia, pleural effusion, or pneumothorax. The heart is normal. IMPRESSION: 1. No acute cardiopulmonary disease. Reviewed, dictated and finalized at location A. CT scan - head: Radiologist's impression: CT brain wo con Ordering provider: Edwin Hatch MD History: 28 years Female with . headache left upper extremity numbness . Comparison: None. Technique: CT of the head without contrast. Radiation reduction technique utilized.The dose-length product was 605.33 mGy- cm. FINDINGS: BRAIN PARENCHYMA AND CSF SPACES: No midline shift, mass effect or hemorrhage. The brain parenchyma and CSF spaces are otherwise normal. VISUALIZED PARANASAL SINUSES: Well aerated. MASTOIDS: Well aerated. BONES: The bones appear intact. SOFT TISSUES: Visualized nasopharynx is normal. Superficial soft tissues are normal. IMPRESSION: No acute intracranial findings. Reviewed, dictated and finalized at location A. head/neck CTA: Radiologist's impression: EXAMINATION: CTA brain carotid DATE: 02/13/2024 13:58 INDICATION: Transient ischemic attack. TECHNIQUE: Computed tomographic angiography (CTA) of the head was performed with 100 mL Omnipaque-350 intravenous contrast. CTA of the neck was performed with intravenous contrast. Automated exposure control and iterative reconstruction technique were employed. The dose-length product was 969.03 mGy-cm. Maximum intensity projection and volume rendered 3D-reconstructions were created by the technologist on a separate workstation. COMPARISON: Head CT 02/13/2024 FINDINGS: HEAD CTA: There is no intracranial hemorrhage, acute infarction, or abnormal intracranial mass lesion. The ventricles are normal in size. There is mild mucosal thickening in the paranasal sinuses. The mastoid air cells are normal. The orbits are normal. The vertebral arteries are codominant. There is no significant stenosis of basilar artery or the posterior cerebral arteries. The posterior communicator arteries are normal. There is no significant stenosis of the intracranial internal carotid arteries or anterior or middle cerebral arteries. Anterior communicating artery is normal. There is no aneurysm. NECK CTA: There are no pathologically enlarged lymph nodes. There is no significant stenosis of the vertebral arteries. There is no visible plaque in the proximal internal carotid arteries. There is 0% stenosis of the proximal right internal carotid artery relative to normal distal artery lumen diameter (NASCET criteria). There is 0% stenosis of the proximal left internal carotid artery relative to normal distal artery lumen diameter. There is kyphosis of cervical spine. IMPRESSION: 1. Normal brain. No aneurysm or significant intracranial arterial stenosis. 2. 0% stenosis of the proximal internal carotid arteries relative to normal d istal artery lumen diameters (NASCET criteria). Reviewed, dictated and finalized at location A. Assessment and Plan Assessment and plan (1) Brain TIA: Code(s): G45.9 - Transient cerebral ischemic attack, unspecified Status: Acute Assessment and Plan: -- patient reporting numbness and tingling in face that lasted a total of 10 minutes, slurred speech, and headache that she rated 10/10. She states that the facial numbness and tingling, slurred speech resolved after about 10 minutes however the headache was persistent. * Brain TIA versus complex migraine * head CT was negative for any acute intracranial process * head/neck CTA showed a normal brain, no aneurysm or significant intracranial arterial stenosis * Neurology consulted * plan for echocardiogram with bubble study in the morning * MRI of the brain and brainstem without contrast ordered * continue neuro checks * continue cardiac monitoring * will check TSH (2) Headache: Code(s): R51.9 - Headache, unspecified Status: Acute Assessment and Plan: * see above plan of care, brain TIA versus complex migraine * patient was given a dose of Toradol 30 mg IV push, Ativan 1 mg, 10 mg IV push every clean, 50 mg IV push Benadryl while in the ED * she also received 1 L normal saline while in the ED * continue pain control * continue nausea control (3) Acute hypokalemia: Code(s): E87.6 - Hypokalemia Status: Acute Assessment and Plan: * potassium 3.3 * will give 40 mEq of potassium now * continue to trend * will check magnesium level (4) Anxiety: Code(s): F41.9 - Anxiety disorder, unspecified Status: Acute Assessment and Plan: * patient was given a dose of Ativan while in the ED * will continue to monitor for now * currently not on any home medication for anxiety Quality VTE Prophylaxis VTE prophylaxis: mechanical ordered Hospitalist [facility] Advance Care Plan I have confirmed that the patient's Advanced Care Plan is present, code status is documented, or surrogate decision maker is listed in patient medical record.: Yes Medication Reconciliation I have utilized all available resources to obtain, update and review the patients current medications (includes all prescriptions, OTC, herbals, cannabis, and nutritional supplements).: Yes
--- NOTE | 2024-02-13 17:05 | ADMGEN ---
This patient, Joann Conti, was admitted to Medical Room 258-01. Patient/family oriented to hospital policies and general routines including ID bracelet, bed and alarms, visiting hours, pain management, procedures, bathroom and other care routines, personal items, smoking policy, room service/diet, and visiting hours. Information on how to activate the Rapid Response Team has been discussed. Patient/Family are encouraged to report perceived risks to care and to ask questions if they do not understand what they are told or what they should do.
[2024-02-13 17:21] VITALS: BP 114/71; PULSE 81; RESP 18; TEMP 36.9; O2SAT 100
[2024-02-13 17:26] VITALS: BMI 24.2
[2024-02-13] MEDS: POTASSIUM CHLORIDE 20 MEQ ER TABLET 40 MEQ PO (17:46)
--- NOTE | 2024-02-13 17:49 | P.CONNEU_ITS ---
Assessment and Plan Assessment and plan (1) Migraine syndrome: Code(s): G43.909 - Migraine, unspecified, not intractable, without status migrainosus Status: Acute Plan History suggestive of neurologic symptoms followed by migraine. This is well known to occur in May some cases. She did have a CT scan of the brain with CT angiogram of head and neck which did not show any evidence for dissection or any structural abnormalities. She is being observed and a echocardiogram and MRI of the brain has been ordered. After. Observation if she remains well and does not have any further recurrence I believe she can be discharged home and if she has any further problem I shall be glad to see her again. I explained the findings from a neurologic perspective. Thank you very much Consult date: 02/13/24 HPI: Joann Conti is a 28 year old female history of migraine which occurs 2 to 3 times a year. Today she was on the phone talking to someone when she suddenly started to have slurring of the speech and thereafter she developed numbness in the right arm and face. Symptoms lasted for about 15 minutes or so. She also felt somewhat confused and thought she had difficulty finding the words or forming sentences. She never had feeling like this. This was followed by headache which was severe. The headache lasted for some time but now the h eadache is much better. She came to the emergency room and was seen by the emergency room physician was given treatment for the headache. They became concerned because of the above symptoms. She does have as daughter seizures and some gene which is shared between her and her daughter which can present either with a seizures or migraine. She was told by shale miner the it can present with either or. In her case she has migraine and her daughter has seizures. However her daughter is 5 years old and has already grown out of the seizures. The patient at this time is feeling well but she denies any history of recent trauma or febrile illness. Review of Systems Review of Systems: All systems reviewed & are unremarkable except as noted in HPI and below [facility] Past Medical History Medical History (Updated 02/13/24 @ 17:52 by Kalani Orellana MD) Anxiety Depression History of chlamydia Migraine equivalent syndrome Migraine syndrome Surgical History Surgical History History of loop electrical excision procedure (LEEP) 02/[facility]21[facility] History of tonsillectomy Tonsils/Adnoids Family History Family History Grandparent Diabetes mellitus Heart disease Sibling Diabetes mellitus Depression Mother Bipolar disorder Family history of lung cancer Chronic obstructive pulmonary disease Father No problems noted. Daughter Seizure disorder Social History Social History Smoking packs per day: 0.5 Smoking cigarettes per day: 10.0 Years smoked: 8 Smoking pack-years: 4.00 Smoking status: Former smoker Second hand tobacco smoke exposure: No Alcohol intake: current Drinks per week: 1 Alcohol use details: 2/MONTH Substance use: former Substance use type: does not use Last use: 03/04/21 Do You Feel Safe in your Home?: Yes Lack of Transportation: No Lack of Food: Never True Current Housing: I Have Housing Concerned About Future Housing: No Difficulty Paying Gas/Electric Bills: No Difficulty Paying for Meds: No Currently Unemployed: No Education: Bachelor's Degree Difficulty w/ Childcare or Family Care: No Living arrangements: with family Occupation/Education: student Gender identity (if verbalized by the patient): Female Spiritual care concerns: No Agree to blood products: Yes Meds Home Medications and Allergies Home Medications Medication Instructions Recorded Confirmed Type Adult One Daily Multivitamin 1 tablet PO DAILY 02/13/24 02/13/24 History Allergies Allergy/AdvReac Type Severity Reaction Status Date / Time No Known Allergies Allergy Verified 02/13/24 13:00 Vital Signs Vital Signs - 24 hr 02/13/24 12:17 02/13/24 13:02 02/13/24 14:23 Temperature 97.6 F 98.2 F Pulse Rate 106 H 82 85 Respiratory Rate 16 18 Blood Pressure 130/84 Pulse Oximetry 100 99 Oxygen Delivery Room Air 02/13/24 17:21 Temperature 98.4 F Pulse Rate 81 Respiratory Rate 18 Blood Pressure 114/71 Pulse Oximetry 100 Oxygen Delivery Exam Const: General: cooperative, well developed and alert Orientation/consciousness: patient oriented x3 HENMT: Head: atraumatic Eyes: Alignment and Position: position normal EOM: EOMs intact bilaterally Neck: Neck: supple Resp: Effort & Inspection: normal respiratory effort Skin: General skin exam: normal color Neuro: General: patient oriented x3 Cranial nerves: Yes CN's II-XII intact bilaterally, Yes facial sensation intact/muscles of mastication intact, Yes facial symmetry and Yes Midline tongue present Cognition (Neuro): normal cognition Speech: normal speech Motor exam (neuro): 5/5 motor strength present throughout Sensory Exam: normal sensation Coordination: [id number] test normal and Normal rapid alternating movements of the distal upper extremity present (Neuro) Results Labs 02/13/24 13:18 02/13/24 13:19 Labs: Short CBC 02/13/24 Range/Units 13:18 WBC 9.5 (4.5-10.0) K/mm3 Hgb 15.0 D (12.0-15.0) g/dL Hct 44.6 (37.0-47.0) % Plt Count 225 (150-375) k/mm3 BMP 02/13/24 13:19 Sodium 139 Potassium 3.3 L Chloride 106 Carbon Dioxide 21 L BUN 9 Creatinine 0.50 L Glucose 103 Calcium 9.2 Liver Function 02/13/24 Range/Units 13:19 Total Bilirubin 0.7 (0.2-1.3) mg/dL AST 23 (14-36) U/L ALT 12 (6-35) U/L Alkaline Phosphatase 56 (38-126) U/L Albumin 4.7 (3.5-5.1) g/dL
[2024-02-13 20:00] VITALS: PULSE 97
[2024-02-13 20:13] VITALS: BP 100/44; PULSE 101; RESP 16; TEMP 37.2; O2SAT 98
[2024-02-14] VITALS: PULSE 73
[2024-02-14 04:00] VITALS: PULSE 91
[2024-02-14 04:49] VITALS: BP 105/62; PULSE 72; RESP 17; TEMP 36.7; O2SAT 100
[2024-02-14 05:40] LABS: Basophils Percent Auto 0.5 % (0.2-1.2); Eosinophils Absolute Auto 0.1 K/mm3 (0-0.3); Eosinophils Percent Auto 1.6 % (0-4.4); Hematocrit 39.7 % (37.0-47.0); Immature Granulocyte Absolute 0.01 K/mm3 (0.00-0.031); Immature Granulocyte Percent A 0.1 % (0-0.5); Lymphocytes Absolute Auto 2.37 K/mm3 (0.9-3.2); Lymphocytes Percent Auto 28.5 % (18.3-44.2); Mean Corpuscular HGB Conc 32.7 g/dl (32-36); Mean Corpuscular Hemoglobin 28.6 pg (26-34); Mean Corpuscular Volume 87.4 fl (80-100); Monocytes Absolute Auto 0.7 K/mm3 (0.1-0.6); Monocytes Percent Auto 7.8 % (2.6-8.5); Neutrophils Absolute Auto 5.1 K/mm3 (1.3-6.7); Neutrophils Percent Auto 61.5 % (45.5-73.1); Platelet Count Result 186 k/mm3 (150-375); Red Blood Count 4.54 M/mm3 (4.2-5.4); Red Cell Distribution Width 13.2 % (11.5-14.5); White Blood Count 8.3 K/mm3 (4.5-10.0)
[2024-02-14 05:56] LABS: Alanine Aminotransferase 10 U/L (6-35); Albumin Level 3.5 g/dL (3.5-5.1); Alkaline Phosphatase 44 U/L (38-126); Anion Gap 7 mmol/L (4-12); Aspartate Amino Transferase 20 U/L (14-36); Bilirubin,Total 0.7 mg/dL (0.2-1.3); Blood Urea Nitrogen 10 mg/dL (7-17); Calcium 8.4 mg/dL (8.4-10.2); Carbon Dioxide 22 mmol/L (22-30); Chloride 108 mmol/L (98-107); Estimated CRCL calculation 98 ml/min; Estimated Glomerular Filt Rate > 60; Glucose 94 mg/dL (65-110); Potassium 4.1 mmol/L (3.4-5.0); Sodium 137 mmol/L (137-145)
[2024-02-14 08:00] VITALS: PULSE 77
[2024-02-14 12:00] VITALS: PULSE 74
--- NOTE | 2024-02-14 13:11 | P.DS_ITS ---
DS: Admitting Diagnosis Discharge Date 02/14/2024 Admitting Diagnosis Stroke like symptoms/Migraine DS: Discharge Diagnosis Discharge Diagnosis (1) Brain TIA: Code(s): G45.9 - Transient cerebral ischemic attack, unspecified Status: Acute (2) Headache: Code(s): R51.9 - Headache, unspecified Status: Acute (3) Acute hypokalemia: Code(s): E87.6 - Hypokalemia Status: Acute (4) Anxiety: Code(s): F41.9 - Anxiety disorder, unspecified Status: Acute Plan Disposition: Discharged to Home DS: Summary Hospital Course Reason for hospitalization: Stroke like symptoms/Migraine Hospital Course: Patient was a a 28-year-old female admitted to the medical unit for stroke-like symptoms versus migraine. Patient reported right-sided numbness that turned into a severe migraine. Patient did report previous history of migraines. She received 1L of NS, Toradol, ativan, reglan, and benadryl while in the ER with complete resolution of her symptoms. She displays no neuro deficits at this time. Workup in the hospital included a head CT which was negative for any acute intracranial findings. Chest x-ray was negative for any acute cardiopulmonary disease. Head and neck CTA showed a normal brain, no aneurysm or significant intracranial arterial stenosis. EKG shown sinus rhythm with sinus arrhythmia with a right bundle branch block, rate 81, QTC 426. Initial labs showed a potassium of 3.3, bicarb 21, otherwise unremarkable. test was negative as well as urine drug screen was negative. MRI brain showed normal brain. Patient was seen by neurology who agreed this was likely induced by patient migraine. Patient did report extreme stress at home and has history of anxiety and panic attacks but has not been on any medication for it for awhile. Patient was discharged to home recommended follow-up with Neurology and non- therapeutic stress reduction techniques to reduce recurrence of migraines. Patient was prescribed Nurtec p.r.n. for migraines. Patient with complete resolution of symptoms and no further events during overnight observation. Status at Discharge Functional status at discharge: independent ambulation Time Spent with Patient Time attestation: Total time spent providing and/or coordinating discharge services: Time spent: Less than 30 minutes Exam Narrative: Physical Exam: * GENERAL: Alert and oriented x 3. No acute distress. * EYES: EOMI. No scleral icterus. PERRLA. * HEENT: Moist mucous membranes. * LUNGS: Clear to auscultation bilaterally. No accessory muscle use. * CARDIOVASCULAR: Regular rate and rhythm. No murmur. No JVD. S1-S2 * ABDOMEN: Soft, non tenderness and non-distended. No palpable masses. * EXTREMITIES: No edema. Non-tender * SKIN: No rashes or lesions. Skin warm, dry. * NEUROLOGIC: No focal neurological deficits. CN II-XII grossly intact * PSYCHIATRIC: Appropriate mood and affect. Good judgement and insight. DS: Data Data Completed and Pending Labs on day of discharge: Labs from last 24 hours 02/14/24 02/13/24 02/13/24 05:20 13:24 13:19 WBC 8.3 RBC 4.54 Hgb 13.0 Hct 39.7 MCV 87.4 MCH 28.6 MCHC 32.7 RDW 13.2 Plt Count 186 MPV 9.0 Immature Gran % (Auto) 0.1 Neut % (Auto) 61.5 Lymph % (Auto) 28.5 [place] % (Auto) 7.8 Eos % (Auto) 1.6 Baso % (Auto) 0.5 Lymph # (Auto) 2.37 [place] # (Auto) 0.7 H Eos # (Auto) 0.1 Baso # (Auto) 0.0 Abs Immat Gran (auto) 0.01 Absolute Neuts (auto) 5.1 Absolute Nucleated RBC 0.000 Nucleated RBC % 0.0 PT 13.1 INR 0.9 APTT 27.9 Sodium 137 139 Potassium 4.1 3.3 L Chloride 108 H 106 Carbon Dioxide 22 21 L Anion Gap 7 12 BUN 10 9 Creatinine 0.60 L 0.50 L Estim Creat Clear Calc 98 116 Estimated GFR > 60 > 60 Glucose 94 103 Calcium 8.4 9.2 Magnesium 2.0 Total Bilirubin 0.7 0.7 AST 20 23 ALT 10 12 Alkaline Phosphatase 44 56 Total Protein 6.0 L 8.0 Albumin 3.5 4.7 TSH 0.920 02/13/24 13:18 WBC 9.5 RBC 5.28 Hgb 15.0 D Hct 44.6 MCV 84.5 MCH 28.4 MCHC 33.6 RDW 12.9 Plt Count 225 MPV 9.2 Immature Gran % (Auto) 0.3 Neut % (Auto) 76.3 H Lymph % (Auto) 16.9 L [place] % (Auto) 5.4 Eos % (Auto) 0.5 Baso % (Auto) 0.6 Lymph # (Auto) 1.61 [place] # (Auto) 0.5 Eos # (Auto) 0.1 Baso # (Auto) 0.1 Abs Immat Gran (auto) 0.03 Absolute Neuts (auto) 7.2 H Absolute Nucleated RBC 0.000 Nucleated RBC % 0.0 PT INR APTT Sodium Potassium Chloride Carbon Dioxide Anion Gap BUN Creatinine Estim Creat Clear Calc Estimated GFR Glucose Calcium Magnesium Total Bilirubin AST ALT Alkaline Phosphatase Total Protein Albumin TSH Imaging Radiologist's impression: FINDINGS: HEAD CTA: There is no intracranial hemorrhage, acute infarction, or abnormal intracranial mass lesion. The ventricles are normal in size. There is mild mucosal thickening in the paranasal sinuses. The mastoid air cells are normal. The orbits are normal. The vertebral arteries are codominant. There is no significant stenosis of basilar artery or the posterior cerebral arteries. The posterior communicator arteries are normal. There is no significant stenosis of the intracranial internal carotid arteries or anterior or middle cerebral arteries. Anterior communicating artery is normal. There is no aneurysm. NECK CTA: There are no pathologically enlarged lymph nodes. There is no significant stenosis of the vertebral arteries. There is no visible plaque in the proximal internal carotid arteries. There is 0% stenosis of the proximal right internal carotid artery relative to normal distal artery lumen diameter (NASCET criteria). There is 0% stenosis of the proximal left internal carotid artery relative to normal distal artery lumen diameter. There is kyphosis of cervical spine. IMPRESSION: 1. Normal brain. No aneurysm or significant intracranial arterial stenosis. 2. 0% stenosis of the proximal internal carotid arteries relative to normal distal artery lumen diameters (NASCET criteria). EXAMINATION: MR brain/brain stem wo con DATE: 02/14/2024 09:19 INDICATION: Transient ischemic attack. TECHNIQUE: Magnetic resonance imaging (MRI) of the brain and brainstem was performed without intravenous contrast. COMPARISON: Head CT 02/13/2024 FINDINGS: There is no intracranial hemorrhage, acute infarction, or abnormal intracranial mass lesion. The ventricles are normal in size. The paranasal sinuses are clear. The orbits are normal. The mastoid air cells are normal. IMPRESSION: 1. Normal brain. Discharge Plan Discharge Attending physician on discharge: Matias Bello Consulting providers: Kalani Orellana; Magi Oro Discharging Clinician: Swathi Calderon Anticipated Discharge Date/Time: 02/14/24 13:05 Patient Disposition: Home, Self-Care Activity: may shower, unlimited and as tolerated Diet: regular Discharge Instructions: You are being discharged after evaluation of possible TIA vs migraine. All findings showed normal brain and no evidence of stroke. I have prescribed medication for breakthrough migraines and recommend follow-up with neurology as well as non-pharmaceutical stress reduction techniques such as yoga, music therapy, exercise, etc.. How can you care for yourself at home? ? Keep track of any new symptoms or changes in your symptoms. ? Rest until you feel better. ? Be safe with medicines. Take your medicines exactly as prescribed. Call your doctor if you think you are having a problem with your medicine. ? Do not drive after taking a prescription pain medicine. ? Ensure to follow-up with primary care physician as indicated and provide updated medication list provided to you at discharge. When should you call for help? Call 911 anytime you think you may need emergency care. For example, call if: ? You passed out (lost consciousness). Call your doctor now or seek immediate medical care if: ? You have new symptoms like fever, difficulty breathing, Chest pain, vomiting, or rash. ? You have new or different pain. ? You are confused and are having trouble thinking clearly. ? Your symptoms are getting worse. Watch closely for changes in your health, and be sure to contact your doctor if: ? You do not get better as expected. Patient Instructions: Antibiotic Form, Migraine Headache (ED), Acute Headache (DC) Patient Language: Persian Stand Alone Forms: General Discharge Information Follow-up/Referrals: EddyMaria Luz [Primary Care Provider] - 2 Weeks Kalani Orellana MD [Physician] - 4 Weeks Discharge Medications: New Nurtec ODT 75 mg tablet,disintegrating 75 mg PO ONCE PRN (Reason: migraine headache) Qty: 30 0RF Rx Instructions: as a single dose Continued Adult One Daily Multivitamin 1 tablet PO DAILY Date of admission: 02/13/24 16:11 Primary Care Provider: NinaMaria Luz Admitting Provider: Samir Ayers Attending physician on admission: Swathi Calderon Condition: Improved Quality -Patient's previous records reviewed on admission -ER notes reviewed in detail on admission -discussed all findings and current treatment plan with patient/Family/POA -Consultations reviewed for recommendations -Patient's disposition for safe discharge discussed with cyanide case hardener Dictation performed by [employer] direct speech recognition software, therefore art teacher variants and typographical errors may occur. Hospitalist MIPS Heart Failure (Exclusion) Patient has history of Heart Transplant or Left Ventricular Assistive Device?: No IF YES, STOP HERE Heart Failure (Qualifier) Patient has current or prior documentation of LVEF less than or equal to 40%, or mod/servere depressed LVSF?: No IF NO, STOP HERE
== END 2024-02-14 13:43 | disposition home or self-care (01) ==
LOC: ANHED 12:24 → ANH2MED 17:26
PROVIDERS: Nurse Practitioner Acute Care; Admitting Provider General Practice; Emergency Provider Emergency Medicine; PCP Nurse Practitioner; Visit Provider Nurse Practitioner Family
DX: G43.909 Migraine, unspecified, not intractable, without status migrainosus (principal); E87.6 Hypokalemia; F41.9 Anxiety disorder, unspecified; Z87.891 Personal history of nicotine dependence
CPT/HCPCS: 36415; 70450; 70496; 70498; 70551; 71045; 80053; 80307; 81025; 82948; 83735; 84443; 85025; 85610; 85730; 93005; 93306; 96361; 96374; 96375; 99285; A9270; G0378; G0379; J1200; J1885; J2060; J2765; J7030; Q9967